=== PATIENT | male | born 1975 | race Caucasian/White ===

== ENCOUNTER 2018-02-07 12:15 | Emergency (ER) | payer MEDICARE, OTHER ==
[~2018-02-07] VITALS: Ht 182.9 cm; Wt 61.5 kg
[~2018-02-07 12:15] MED LIST: CLIN150C2 PO; HYDR-3965 PO
[2018-02-07 12:24] VITALS: BP 148/83
[2018-02-07] MEDS ORDERED: ketorolac trometh inj. 60 MG/2 ML VIAL IM ONE (15:00)
[2018-02-07] MEDS ORDERED: LEVO500T2 PO (15:12)
[2018-02-07 15:50] LABS: CLARITY,URINE CLEAR (Clear); COLOR,URINE YELLOW (Yellow); GLUCOSE, URINE NEGATIVE (Neg); KETONES,URINE NEGATIVE (Neg); LEUKOCYTE ESTERASE ,URINE NEGATIVE (Neg); NITRITES, URINE NEGATIVE (Neg); OCCULT BLOOD,URINE NEGATIVE (Neg); PROTEIN,URINE NEGATIVE (Neg); UROBILINOGEN,URINE 0.2 E.U/dL (0.2-1.0)
[2018-02-07 15:58] LABS: UA COLLECTION TYPE CLN CATCH MIDSTREAM
== END 2018-02-07 16:08 | disposition home or self-care (01) ==
LOC: ER 12:16
DX: N43.3 Hydrocele, unspecified (principal); G89.29 Other chronic pain; F12.10 Cannabis abuse, uncomplicated
CPT/HCPCS: 76870; 81003; 96372; 99285; J1885

== ENCOUNTER 2021-11-05 18:38 | Emergency (ER) | payer MEDICARE ==
[~2021-11-05] VITALS: Ht 182.9 cm; Wt 84.0 kg
[~2021-11-05 18:38] MED LIST changes: -CLIN150C2 PO; -HYDR-3965 PO; +HYDR-4383 PO
[2021-11-05] MEDS ORDERED: LIDOcaine 1% W/epiNEPHrine 1:200,000 10ml vial IJ ONE (21:20)
[2021-11-05] MEDS ORDERED: LIDOcaine 1% W/epiNEPHrine 1:100,000 20ml vial IJ ONE (21:25)
[2021-11-05] MEDS ORDERED: cephalexin 500mg capsule PO ONE (21:55)
[2021-11-05] MEDS ORDERED: sulfamethoxazole/trimethoprim DS (800/160mg) tablet PO ONE (21:55)
[2021-11-05] MEDS ORDERED: CEPH250T PO (22:06)
[2021-11-05] MEDS ORDERED: SULF1TAB45 PO (22:06)
[2021-11-05 22:38] VITALS: BP 135/87
== END 2021-11-05 22:40 | disposition home or self-care (01) ==
LOC: ER 18:38
DX: L02.01 Cutaneous abscess of face (principal); G89.29 Other chronic pain; F12.90 Cannabis use, unspecified, uncomplicated; Z87.442 Personal history of urinary calculi; Z98.890 Other specified postprocedural states; Z79.2 Long term (current) use of antibiotics; Z79.899 Other long term (current) drug therapy
CPT/HCPCS: 10060; 99283

== ENCOUNTER 2022-01-01 00:42 | Emergency (ER) | payer MEDICARE ==
[~2022-01-01] VITALS: Ht 182.9 cm; Wt 77.8 kg
[2022-01-01] MEDS ORDERED: clindamycin 150mg capsule PO ONE (02:00)
[2022-01-01] MEDS ORDERED: CLIN300C71 PO (02:02)
[2022-01-01] MEDS ORDERED: TETanus/Pertussis (Acell)/Diphther VAC/PF (Tdap-Adult) 0.5ml syringe IMVAC ONE (02:15)
[2022-01-01 02:51] VITALS: BP 135/80
== END 2022-01-01 02:52 | disposition home or self-care (01) ==
LOC: ER 00:43
DX: S61.220A Laceration with foreign body of right index finger without damage to nail, initial encounter (principal); G89.29 Other chronic pain; F12.90 Cannabis use, unspecified, uncomplicated; Z87.442 Personal history of urinary calculi; Z79.2 Long term (current) use of antibiotics; Z79.899 Other long term (current) drug therapy; W34.09XA Accidental discharge from other specified firearms, initial encounter; Y93.89 Activity, other specified; Y92.89 Other specified places as the place of occurrence of the external cause; Y99.8 Other external cause status
CPT/HCPCS: 73130; 90471; 90715; 99283